=== PATIENT | male | born 1990 | race Caucasian/White ===

== ENCOUNTER 2024-10-23 09:16 | Inpatient (IN) | payer BC, OTHER ==
[2024-10-23] VITALS (9 sets, daily range): BP systolic 122–126; BP diastolic 65–72; PULSE 67–78; RESP 15–19; TEMP 97.7–99; O2SAT 96–100
[~2024-10-23] VITALS: Ht 193 cm; Wt 129.3 kg
[2024-10-23 09:55] LABS: BASOPHILS % 0.3 % (0.0-1.0); EOSINOPHILS # (AUTO) 0.2 (0.0-0.4); EOSINOPHILS % 1.5 % (0.0-6.0); HEMATOCRIT 47.8 % (38.2-49.6); HEMOGLOBIN 16.6 g/dL (14.0-18.0); LYMPHOCYTES # (AUTO) 1.5 (1.0-3.2); MEAN CORPUSCULAR HEMOGLOBIN 30.5 pg (28-32); MEAN CORPUSCULAR HGB CONC 34.7 g/dL (31-35); MEAN CORPUSCULAR VOLUME 87.9 fL (81-99); MONOCYTES # (AUTO) 1.3 (0.2-0.8); MONOCYTES % 8.9 % (4.4-11.3); NEUTROPHILS # (AUTO) 11.5 (2.1-6.9); NEUTROPHILS % 78.5 % (38.7-80.0); PLATELET COUNT 351 x10e3/uL (140-360); RED BLOOD COUNT 5.44 x10e6/uL (4.3-5.7); RED CELL DISTRIBUTION WIDTH 12.6 % (11.7-14.4); WHITE BLOOD COUNT 14.65 x10e3/uL (4.8-10.8)
[2024-10-23 10:49] LABS: INR 0.87; PROTHROMBIN TIME 12.4 seconds (11.9-14.5)
[2024-10-23 10:50] LABS: PARTIAL THROMBOPLASTIN TIME 26.4 seconds (23.8-35.5)
[2024-10-23 10:58] LABS: ALBUMIN 3.6 g/dL (3.5-5.0); ALBUMIN/GLOBULIN RATIO 0.9 (0.8-2.0); ANION GAP 17.7 mmol/L (8-16); BILIRUBIN,TOTAL 0.5 mg/dL (0.2-1.2); CALCIUM 9.2 mg/dL (8.4-10.2); CREATININE, SERUM 1.14 mg/dL (0.72-1.25); POTASSIUM 4.7 mmol/L (3.5-5.1); TOTAL PROTEIN 7.8 g/dL (6.5-8.1)
[2024-10-23] MEDS ORDERED: IOPAMIDOL 370 MG/ML 100 ML INFUS..BTL INJ ONE (11:13)
[2024-10-23] MEDS ORDERED: Morphine 2mg Syringe 2 MG/ML SYR IV PRN (12:45)
[2024-10-23] MEDS ORDERED: SODIUM CHLORIDE FLUSH 10 ML SYR INJ PRN (12:45)
[2024-10-23] MEDS ORDERED: Vancomycin IV 1.25 GM in SODIUM CHLORIDE 0.9% 250ML 250 ML IV SCH (12:45)
[2024-10-23] MEDS ORDERED: ONDANSETRON HCL INJ 2MG/ML 2ML 2 MG/ML VIAL IV PRN (12:45)
[2024-10-23] MEDS: SODIUM CHLORIDE 0.9% 1000ML 1,000 ML IV ONE (16:51)
[2024-10-23] MEDS: KETOROLAC TROMETHAMINE 30 MG/ML VIAL IV STA (16:51)
[2024-10-23] MEDS ORDERED: POLYETHYLENE GLYCOL 3350 17 GM PACK PO PRN (18:15)
[2024-10-23] MEDS ORDERED: BISACODYL 10 MG SUPP PR PRN (18:15)
[2024-10-23] MEDS: VANCOMYCIN HCL 1.25 GM in SODIUM CHLORIDE 0.9% 250ML 250 ML IV SCH (19:35)
[2024-10-23] MEDS: CEFEPIME 2 GM in SODIUM CHLORIDE 0.9% 100 ML IV SCH (21:59)
[2024-10-23] MEDS: SODIUM CHLORIDE 0.9% 1000ML 1,000 ML IV SCH (21:59)
[2024-10-24] VITALS (9 sets, daily range): BP systolic 105–138; BP diastolic 50–80; PULSE 69–87; RESP 18–20; TEMP 97.7–98.7; O2SAT 97–100
[2024-10-24 05:52] LABS: HEMATOCRIT 44.3 % (38.2-49.6); HEMOGLOBIN 15.2 g/dL (14.0-18.0); MEAN CORPUSCULAR HEMOGLOBIN 30.5 pg (28-32); MEAN CORPUSCULAR HGB CONC 34.3 g/dL (31-35); MEAN CORPUSCULAR VOLUME 88.8 fL (81-99); PLATELET COUNT 364 x10e3/uL (140-360); RED BLOOD COUNT 4.99 x10e6/uL (4.3-5.7); RED CELL DISTRIBUTION WIDTH 12.8 % (11.7-14.4); WHITE BLOOD COUNT 11.06 x10e3/uL (4.8-10.8)
[2024-10-24 05:53] LABS: BASOPHILS # (AUTO) 0.1 (0.0-0.1); BASOPHILS % 0.5 % (0.0-1.0); EOSINOPHILS # (AUTO) 0.4 (0.0-0.4); EOSINOPHILS % 3.3 % (0.0-6.0); LYMPHOCYTES # (AUTO) 2.3 (1.0-3.2); LYMPHOCYTES % 21.1 % (18.0-39.1); MONOCYTES # (AUTO) 1.2 (0.2-0.8); MONOCYTES % 10.9 % (4.4-11.3); NEUTROPHILS % 63.4 % (38.7-80.0)
[2024-10-24 06:10] LABS: ALBUMIN 3.1 g/dL (3.5-5.0); ALBUMIN/GLOBULIN RATIO 0.8 (0.8-2.0); ANION GAP 14.2 mmol/L (8-16); BILIRUBIN,TOTAL 0.3 mg/dL (0.2-1.2); CALCIUM 8.5 mg/dL (8.4-10.2); CREATININE, SERUM 1.08 mg/dL (0.72-1.25); POTASSIUM 4.2 mmol/L (3.5-5.1); TOTAL PROTEIN 7.1 g/dL (6.5-8.1)
[2024-10-24] MEDS ORDERED: MIDAZOLAM HCL 2 MG/2 ML VIAL ONE (09:32)
[2024-10-24] MEDS ORDERED: LIDOCAINE HCL 2% LOCAL INJ 5 ML SDV VIAL INJ ONE (09:32)
[2024-10-24] MEDS ORDERED: PROPOFOL IV EMULSION 10 MG/ML 20 ML VIAL ONE ×2 (09:32→09:38)
[2024-10-24] MEDS ORDERED: FENTANYL CITRATE/PF 100MCG/2 ML INJ ONE ×2 (09:32→09:56)
[2024-10-24] MEDS ORDERED: ACETAMINOPHEN 1000 MG/100 ML 100 ML IV ONE (09:56)
[2024-10-24] MEDS ORDERED: DEXAMETHASONE SOD PHOS INJ 4 MG/ML SDV ONE (10:01)
[2024-10-24] MEDS ORDERED: HYDROCODONE/APAP 7.5MG-325MG 1 EA TAB PO PRN (10:30)
[2024-10-24] MEDS: KETOROLAC TROMETHAMINE 30 MG/ML VIAL IV PRN (11:45)
[2024-10-25 03:39] VITALS: BP 115/55; PULSE 80; RESP 19; TEMP 97.5; O2SAT 99
[2024-10-25 08:00] VITALS: BP 132/73; PULSE 72; RESP 18; TEMP 98.5; O2SAT 100
[2024-10-25 08:28] LABS: BASOPHILS % 0.1 % (0.0-1.0); EOSINOPHILS % 0.1 % (0.0-6.0); HEMATOCRIT 43.6 % (38.2-49.6); HEMOGLOBIN 14.9 g/dL (14.0-18.0); LYMPHOCYTES % 10.5 % (18.0-39.1); MEAN CORPUSCULAR HEMOGLOBIN 30.2 pg (28-32); MEAN CORPUSCULAR HGB CONC 34.2 g/dL (31-35); MEAN CORPUSCULAR VOLUME 88.3 fL (81-99); NEUTROPHILS # (AUTO) 13.1 (2.1-6.9); NEUTROPHILS % 82.7 % (38.7-80.0); PLATELET COUNT 382 x10e3/uL (140-360); RED BLOOD COUNT 4.94 x10e6/uL (4.3-5.7); RED CELL DISTRIBUTION WIDTH 12.5 % (11.7-14.4); WHITE BLOOD COUNT 15.86 x10e3/uL (4.8-10.8)
[2024-10-25 08:29] LABS: LYMPHOCYTES # (AUTO) 1.7 (1.0-3.2)
[2024-10-25 08:40] VITALS: BP 132/73; PULSE 72; RESP 18; TEMP 98.5; O2SAT 100
[2024-10-25 09:41] LABS: ANION GAP 18.2 mmol/L (8-16); CALCIUM 8.1 mg/dL (8.4-10.2); POTASSIUM 4.2 mmol/L (3.5-5.1)
[2024-10-25] MEDS: DOXYCYCLINE HYCLATE TABLET 100 MG TAB PO SCH (09:55)
[2024-10-25 12:00] VITALS: BP 124/84; PULSE 63; RESP 17; TEMP 98.7; O2SAT 100
[2024-10-25 16:00] VITALS: BP 140/77; PULSE 81; RESP 18; TEMP 98.2; O2SAT 98
[2024-10-25] MEDS: CELECOXIB 200 MG CAP PO SCH (16:00)
[2024-10-25 20:00] VITALS: BP 118/54; PULSE 71; RESP 18; TEMP 98.5; O2SAT 98
[2024-10-26] VITALS: BP 109/51; PULSE 71; RESP 20; TEMP 97.7; O2SAT 98
[2024-10-26 04:00] VITALS: BP 106/63; PULSE 60; RESP 18; TEMP 98.1; O2SAT 98
[2024-10-26 05:30] LABS: BASOPHILS # (AUTO) 0.1 (0.0-0.1); BASOPHILS % 0.5 % (0.0-1.0); EOSINOPHILS # (AUTO) 0.1 (0.0-0.4); EOSINOPHILS % 0.9 % (0.0-6.0); HEMATOCRIT 43.7 % (38.2-49.6); HEMOGLOBIN 14.5 g/dL (14.0-18.0); LYMPHOCYTES # (AUTO) 3.4 (1.0-3.2); LYMPHOCYTES % 34.4 % (18.0-39.1); MEAN CORPUSCULAR HEMOGLOBIN 30.3 pg (28-32); MEAN CORPUSCULAR HGB CONC 33.2 g/dL (31-35); MEAN CORPUSCULAR VOLUME 91.2 fL (81-99); MONOCYTES # (AUTO) 0.7 (0.2-0.8); NEUTROPHILS # (AUTO) 5.5 (2.1-6.9); NEUTROPHILS % 55.8 % (38.7-80.0); PLATELET COUNT 347 x10e3/uL (140-360); RED BLOOD COUNT 4.79 x10e6/uL (4.3-5.7); RED CELL DISTRIBUTION WIDTH 12.7 % (11.7-14.4)
[2024-10-26 08:00] VITALS: BP 125/70; PULSE 74; RESP 20; TEMP 97.7; O2SAT 98
[2024-10-26] MEDS: PANTOPRAZOLE SOD 40 MG TABEC PO SCH (08:13)
[2024-10-26 09:11] VITALS: BP 106/63; PULSE 60; RESP 18; TEMP 98.1; O2SAT 98
[2024-10-26 12:24] VITALS: BP 120/63; PULSE 63; RESP 18; TEMP 98.3; O2SAT 100
== END 2024-10-26 12:30 | disposition home or self-care (01) | DRG 857 ==
LOC: ER 09:21 → ERHOLD 12:42 → MED/SURG2 13:11
PROVIDERS: ADMIT Internal Medicine; ATTEND Internal Medicine
PROC: 0HB8XZZ Excision of Buttock Skin, External Approach (ICD-10-PCS; 2024-10-24)
PROC: 0KCP0ZZ Extirpation of Matter from Left Hip Muscle, Open Approach (ICD-10-PCS; principal; 2024-10-24 09:30)
DX: T80.29XA Infection following other infusion, transfusion and therapeutic injection, initial encounter (principal); L02.31 Cutaneous abscess of buttock; E29.1 Testicular hypofunction; R61 Generalized hyperhidrosis; E66.811 Obesity, class 1; Z68.34 Body mass index [BMI] 34.0-34.9, adult; Z79.890 Hormone replacement therapy
CPT/HCPCS: 36415; 74177; 80048; 80053; 80202; 83690; 83735; 85025; 85610; 85730; 87071; 87075; 87205; 94799; 99284; J0692; J1100; J1885; J2003; J2250; J2470; J2543; J7030; J7050; Q9967